=== PATIENT | female | born 1980 | race Caucasian/White ===

== ENCOUNTER 2025-03-17 16:28 | Emergency (ER) | payer BC ==
[~2025-03-17] VITALS: Ht 167.6 cm; Wt 59.0 kg
[~2025-03-17 16:28] MED LIST: MIRT-89 PO
[2025-03-17 16:33] VITALS: TEMP 36.8; O2SAT 96
[2025-03-17] MEDS ORDERED: DIPHENHYDRAMINE 50MG CAPSULE PO ONE (19:30)
[2025-03-17 19:58] LABS: BASOPHILS % 0.6 % (0.0-2.0); HEMATOCRIT. 34.2 % (36.0-48.0); HEMOGLOBIN. 11.1 g/dL (12.0-16.0); LYMPHOCYTES % 38.4 % (20.0-50.0); MEAN CORPUSCULAR HEMOGLOBIN 28.3 pg (28.0-32.0); MEAN CORPUSCULAR HGB CONC 32.4 g/dL (31.0-37.0); MEAN CORPUSCULAR VOLUME 87.1 fL (81.0-99.0); MONOCYTES % 5.5 % (2.0-8.0); NEUTROPHILS % 48.5 % (40.0-76.0); PLATELET 263 x1000/uL (130-400); RED BLOOD CELL COUNT 3.93 mill/uL (4.2-5.4); RED CELL DISTRIBUTION WIDTH 16.7 % (11.6-14.6)
[2025-03-17 20:04] LABS: CHLORIDE 108 mEq/L (98-107); POTASSIUM 3.7 mEq/L (3.5-5.1); SODIUM 138 mEq/L (136-145)
[2025-03-17 20:05] LABS: CARBON DIOXIDE 24 mEq/L (21-32)
[2025-03-17] MEDS: SUMATRIPTAN SUCCINATE 6MG/0.5ML VIAL SUBCUT ONE (20:05)
[2025-03-17] MEDS: DIPHENHYDRAMINE 25MG CAPSULE PO SCH (20:06)
[2025-03-17 20:08] VITALS: BP 133/80; PULSE 76; RESP 18; O2SAT 100
[2025-03-17 20:08] LABS: HCG SCREEN NEGATIVE
[2025-03-17 20:10] LABS: CREATININE 0.6 mg/dL (0.6-1.0); GLUCOSE 99 mg/dL (70-105)
[2025-03-17 20:11] LABS: UREA NITROGEN BLOOD 15 mg/dL (9-23)
[2025-03-17 20:12] LABS: ALANINE AMINOTRANSFERASE 71 IU/L (10-49); ALBUMIN 4.9 g/dL (3.2-4.8); ASPARTATE AMINOTRANSFERASE 78 IU/L (<34)
[2025-03-17 20:13] LABS: BILIRUBIN DIRECT 0.3 mg/dL (<=3.0); BILIRUBIN TOTAL 0.6 mg/dL (0.1-1.0); PROTEIN TOTAL 7.5 g/dL (6.0-8.3)
== END 2025-03-17 21:11 | disposition left against medical advice (07) ==
LOC: ER 16:28
DX: H53.142 Visual discomfort, left eye (principal); R10.13 Epigastric pain; Z79.899 Other long term (current) drug therapy; Z98.890 Other specified postprocedural states; Z90.411 Acquired partial absence of pancreas; Z90.49 Acquired absence of other specified parts of digestive tract; Z91.041 Radiographic dye allergy status; Z91.040 Latex allergy status; Z88.8 Allergy status to other drugs, medicaments and biological substances; Z88.1 Allergy status to other antibiotic agents
CPT/HCPCS: 99283; 80076; 80048; 84703; 83690; 85025; 36415; 96372; Q0163; J3030